=== PATIENT | male | born 1975 | race Caucasian/White ===

== ENCOUNTER 2017-05-12 07:18 | Emergency (ER) | payer BC ==
[~2017-05-12] VITALS: Ht 182.9 cm; Wt 90.0 kg
[2017-05-12] MEDS ORDERED: MORPHINE SUL30 M3 PO (07:34)
[2017-05-12] MEDS ORDERED: EC-NAPROSYN500 MG PO (07:54)
[2017-05-12 08:19] VITALS: BP 147/71
== END 2017-05-12 08:30 | disposition home or self-care (01) | DRG 605 ==
LOC: ED 07:18
PROC: 2W3DX1Z Immobilization of Left Lower Arm using Splint (ICD-10-PCS; principal; 2017-05-12)
DX: S60.222A Contusion of left hand, initial encounter (principal); S60.212A Contusion of left wrist, initial encounter; M79.642 Pain in left hand; R20.0 Anesthesia of skin; R22.32 Localized swelling, mass and lump, left upper limb; W39.XXXA Discharge of firework, initial encounter; Y93.89 Activity, other specified; Y92.009 Unspecified place in unspecified non-institutional (private) residence as the place of occurrence of the external cause

== ENCOUNTER 2022-03-16 17:54 | Emergency (ER) | payer BC ==
[~2022-03-16 17:54] MED LIST: EC-NAPROSYN500 MG PO; MORPHINE SUL30 M3 PO
== END 2022-03-16 19:50 | disposition home or self-care (01) | DRG 951 ==
LOC: ED 17:54 → LWOBS 18:41 → ED 18:41 → LWOBS 19:50
DX: Z53.21 Procedure and treatment not carried out due to patient leaving prior to being seen by health care provider (principal)